=== PATIENT | female | born 1990 | race Two or more races ===

== ENCOUNTER 2020-06-14 23:15 | Emergency (ER) | payer MEDICAID ==
[~2020-06-14] VITALS: Ht 154.9 cm; Wt 81.8 kg
[2020-06-14] MEDS ORDERED: TETR15DR99 OP (23:24)
[2020-06-15] MEDS ORDERED: ONDANSETRON HCL 4 MG/2 ML VIAL IVP ONE
[2020-06-15] MEDS ORDERED: KETOROLAC TROMETHAMINE 30 MG/ML VIAL IVP ONE
[2020-06-15] MEDS ORDERED: SODIUM CHLORIDE 0.9% 1,000 ML IV ONE
[2020-06-15 00:02] VITALS: BP 119/65
[2020-06-15] MEDS ORDERED: ERYTHROMYCIN 0.5% 3.5 GM TUBE OPHTHALMIC OINTMENT OU ONE (00:30)
== END 2020-06-15 00:51 | disposition home or self-care (01) ==
LOC: EMS 23:15
DX: H10.9 Unspecified conjunctivitis (principal)
CPT/HCPCS: 99282; 99283